=== PATIENT | male | born 1960 | race American Indian/Alaskan Native ===

== ENCOUNTER → 2024-03-25 | Outpatient (CLI) | payer OTHER ==
[2024-03-25 13:38] LABS: Urine Bacteria None Seen /hpf (None Seen)
[2024-03-25 13:59] LABS: Basophils # (auto) 0 10 ^3/uL (0-0.2); Basophils % (auto) 0.5 % (0.0-2.0); Eosinophils # (auto) 0.1 10 ^3/uL (0-0.8); Eosinophils % (auto) 2.1 % (0.0-7.0); Hematocrit 40.6 % (41.0-53.0); Hemoglobin 13.6 g/dL (13.5-17.5); Lymphocytes % (auto) 28.3 % (10.0-50.0); Mean Corpuscular Hemoglobin 27.5 pg (28.0-32.0); Mean Corpuscular Hgb Conc. 33.5 g/dL (32.0-36.0); Mean Corpuscular Volume 82.1 fL (80.0-100.0); Monocytes # (auto) 0.6 10 ^3/uL (0-1.3); Monocytes % (auto) 8.6 % (0.0-12.0); Neutrophils # (auto) 4.3 10 ^3/uL (1.6-8.6); Neutrophils % (auto) 60.5 % (37.0-80.0); Nucleated Red Blood Cells % 0.1 %; Red Blood Cells 4.94 10^6/uL (4.5-5.90); Red Cell Distribution Width 14.2 % (11.8-14.3)
[2024-03-25 14:02] LABS: Urine Blood Negative /uL (Negative); Urine Clarity Clear (Clear); Urine Color Light-Yellow (Yellow); Urine Protein, UAD Negative (Negative); Urine Specific Gravity 1.019 (1.001-1.035); Urine Urobilinogen Normal (Negative); Urine WBC 3 /hpf (0 - 3)
[2024-03-25 14:44] LABS: Alanine Aminotransferase 20 U/L (7-40); Albumin 4.4 g/dL (3.2-4.8); Alkaline Phosphatase 52 U/L (46-116); Anion Gap 6 (5-15); Aspartate Aminotransferase 17 U/L (13-40); BUN/Creatinine Ratio 9.1 (10.0-20.0); Bilirubin, Total 0.7 mg/dL (0.2-1.0); Blood Urea Nitrogen 7 mg/dL (9-23); Calcium 9.7 mg/dL (8.7-10.4); Carbon Dioxide 27 mmol/L (20-30); Chloride 105 mmol/L (98-107); Cholesterol 183 mg/dL (< 200); Glucose 109 mg/dL (74-106); HDL Cholesterol 31 mg/dL (40-59); LDL Cholesterol 134 mg/dL (< 100); Sodium 138 mmol/L (136-145); Triglycerides 160 mg/dL (< 150)
[2024-03-25 14:45] LABS: Total Protein 6.9 g/dL (5.7-8.2)
[2024-03-25 14:46] LABS: Folate (Folic Acid) 11.52 ng/mL (>5.38)
[2024-03-25 14:52] LABS: Uric Acid 6.1 mg/dL (3.7-9.2)
== END | disposition home or self-care (01) ==
LOC: LAB 13:24
PROVIDERS: ATTEND Internal Medicine
DX: I10 Essential (primary) hypertension (principal); E11.9 Type 2 diabetes mellitus without complications; E55.9 Vitamin D deficiency, unspecified; E03.9 Hypothyroidism, unspecified
CPT/HCPCS: 36415; 80053; 80061; 81001; 82306; 82607; 82746; 83036; 84443; 84550; 85025; 87086

== ENCOUNTER → 2024-06-21 | Outpatient (CLI) | payer OTHER ==
[2024-06-21 11:38] LABS: Urine Bacteria None Seen /hpf (None Seen); Urine WBC None Seen /hpf (0 - 3)
[2024-06-21 11:49] LABS: Basophils # (auto) 0 10 ^3/uL (0-0.2); Basophils % (auto) 0.3 % (0.0-2.0); Eosinophils # (auto) 0.2 10 ^3/uL (0-0.8); Eosinophils % (auto) 1.9 % (0.0-7.0); Hematocrit 41.9 % (41.0-53.0); Hemoglobin 13.8 g/dL (13.5-17.5); Lymphocytes # (auto) 1.9 10 ^3/uL (0.4-5.4); Lymphocytes % (auto) 19.5 % (10.0-50.0); Mean Corpuscular Hemoglobin 27.7 pg (28.0-32.0); Mean Corpuscular Hgb Conc. 33.1 g/dL (32.0-36.0); Mean Corpuscular Volume 83.8 fL (80.0-100.0); Monocytes # (auto) 0.8 10 ^3/uL (0-1.3); Monocytes % (auto) 8.3 % (0.0-12.0); Neutrophils # (auto) 6.9 10 ^3/uL (1.6-8.6); Platelet Count (auto) 304 10^3/uL (140-450); Red Cell Distribution Width 14.2 % (11.8-14.3); White Blood Cell 9.8 10^3/uL (4.4-10.8)
[2024-06-21 12:13] LABS: Alanine Aminotransferase 30 U/L (7-40); Alkaline Phosphatase 61 U/L (46-116); Anion Gap 9 (5-15); Aspartate Aminotransferase 27 U/L (13-40); BUN/Creatinine Ratio 12.5 (10.0-20.0); Blood Urea Nitrogen 10 mg/dL (9-23); Calcium 10.1 mg/dL (8.7-10.4); Carbon Dioxide 26 mmol/L (20-31); Chloride 106 mmol/L (98-107); Glucose 146 mg/dL (74-106); LDL Cholesterol 62 mg/dL (< 100); Potassium 4.1 mmol/L (3.5-5.1); Sodium 141 mmol/L (136-145); Triglycerides 120 mg/dL (< 150)
[2024-06-21 12:14] LABS: Albumin 4.5 g/dL (3.2-4.8); Cholesterol 111 mg/dL (< 200); HDL Cholesterol 36 mg/dL (40-59)
[2024-06-21 12:15] LABS: Bilirubin, Total 0.5 mg/dL (0.2-1.0); Total Protein 7.2 g/dL (5.7-8.2)
[2024-06-21 12:17] LABS: Folate (Folic Acid) 15.02 ng/mL (>5.38)
[2024-06-21 12:39] LABS: Urine Blood Negative /uL (Negative); Urine Clarity Clear (Clear); Urine Color Light-Yellow (Yellow); Urine Protein, UAD Negative (Negative); Urine Urobilinogen Normal (Negative)
[2024-06-21 12:47] LABS: Uric Acid 5.3 mg/dL (3.7-9.2)
== END | disposition home or self-care (01) ==
LOC: LAB 11:23
PROVIDERS: ATTEND Nurse Practitioner Family
DX: E61.2 Magnesium deficiency (principal); D51.9 Vitamin B12 deficiency anemia, unspecified; R73.09 Other abnormal glucose; R94.6 Abnormal results of thyroid function studies; E55.9 Vitamin D deficiency, unspecified; E79.0 Hyperuricemia without signs of inflammatory arthritis and tophaceous disease; R82.90 Unspecified abnormal findings in urine
CPT/HCPCS: 36415; 80053; 80061; 81001; 82306; 82607; 82746; 83036; 84443; 84550; 85025; 87086

== ENCOUNTER → 2024-08-26 | Outpatient (CLI) | payer OTHER ==
[2024-08-26 13:18] LABS: Basophils # (auto) 0 10 ^3/uL (0-0.2); Basophils % (auto) 0.4 % (0.0-2.0); Eosinophils # (auto) 0.3 10 ^3/uL (0-0.8); Eosinophils % (auto) 3.1 % (0.0-7.0); Hematocrit 43.8 % (41.0-53.0); Hemoglobin 14.6 g/dL (13.5-17.5); Lymphocytes # (auto) 1.9 10 ^3/uL (0.4-5.4); Lymphocytes % (auto) 21.6 % (10.0-50.0); Mean Corpuscular Hemoglobin 27.9 pg (28.0-32.0); Mean Corpuscular Hgb Conc. 33.3 g/dL (32.0-36.0); Mean Corpuscular Volume 83.6 fL (80.0-100.0); Monocytes # (auto) 0.9 10 ^3/uL (0-1.3); Neutrophils # (auto) 5.7 10 ^3/uL (1.6-8.6); Neutrophils % (auto) 64.9 % (37.0-80.0); Platelet Count (auto) 304 10^3/uL (140-450); Red Blood Cells 5.23 10^6/uL (4.5-5.90); Red Cell Distribution Width 13.2 % (11.8-14.3); White Blood Cell 8.7 10^3/uL (4.4-10.8)
[2024-08-26 13:51] LABS: Alanine Aminotransferase 32 U/L (7-40); Albumin 4.5 g/dL (3.2-4.8); Alkaline Phosphatase 63 U/L (46-116); Anion Gap 6 (5-15); Aspartate Aminotransferase 24 U/L (13-40); BUN/Creatinine Ratio 11.1 (10.0-20.0); Bilirubin, Direct 0.1 mg/dL (<0.3); Bilirubin, Total 0.3 mg/dL (0.2-1.0); Blood Urea Nitrogen 9 mg/dL (9-23); Calcium 10.1 mg/dL (8.7-10.4); Carbon Dioxide 28 mmol/L (20-31); Chloride 104 mmol/L (98-107); Cholesterol 123 mg/dL (< 200); LDL Cholesterol 66 mg/dL (< 100); Potassium 4.3 mmol/L (3.5-5.1); Sodium 138 mmol/L (136-145); Total Protein 7.2 g/dL (5.7-8.2); Triglycerides 144 mg/dL (< 150)
[2024-08-26 13:54] LABS: Glucose 155 mg/dL (74-106); HDL Cholesterol 39 mg/dL (40-59)
== END | disposition home or self-care (01) ==
LOC: LAB 12:46
PROVIDERS: ATTEND Specialist
DX: I10 Essential (primary) hypertension (principal); R79.89 Other specified abnormal findings of blood chemistry; R68.89 Other general symptoms and signs; E03.9 Hypothyroidism, unspecified; D64.9 Anemia, unspecified; E78.5 Hyperlipidemia, unspecified; E11.9 Type 2 diabetes mellitus without complications; E83.40 Disorders of magnesium metabolism, unspecified
CPT/HCPCS: 36415; 80053; 80061; 82248; 84443; 85025

== ENCOUNTER → 2024-09-26 | Outpatient (CLI) | payer OTHER ==
[2024-09-26 15:28] LABS: Urine Bacteria None Seen /hpf (None Seen)
[2024-09-26 16:10] LABS: Urine Blood Negative /uL (Negative); Urine Clarity Clear (Clear); Urine Color Light-Yellow (Yellow); Urine Mucus FEW (None Seen); Urine Protein, UAD Negative (Negative); Urine Specific Gravity 1.018 (1.001-1.035); Urine Squamous Epithelial Cell FEW /hpf (<5); Urine Urobilinogen Normal (Negative); Urine WBC 2 /HPF (0-3)
[2024-09-26 16:21] LABS: Alanine Aminotransferase 22 U/L (7-40); Alkaline Phosphatase 59 U/L (46-116); Anion Gap 8 (5-15); BUN/Creatinine Ratio 15.7 (10.0-20.0); Blood Urea Nitrogen 14 mg/dL (9-23); Carbon Dioxide 28 mmol/L (20-31); Chloride 104 mmol/L (98-107); Cholesterol 106 mg/dL (< 200); LDL Cholesterol 62 mg/dL (< 100); Magnesium 1.7 mg/dL (1.6-2.6); Potassium 4.2 mmol/L (3.5-5.1); Sodium 140 mmol/L (136-145); Triglycerides 125 mg/dL (< 150)
[2024-09-26 16:22] LABS: Bilirubin, Total 0.4 mg/dL (0.2-1.0); Total Protein 7.5 g/dL (5.7-8.2)
[2024-09-26 16:23] LABS: Folate (Folic Acid) 10.05 ng/mL (>5.38)
[2024-09-26 16:28] LABS: Calcium 10.8 mg/dL (8.7-10.4); Glucose 133 mg/dL (74-106); HDL Cholesterol 32 mg/dL (40-59)
[2024-09-26 16:42] LABS: Aspartate Aminotransferase < 8 U/L (13-40)
[2024-09-26 16:54] LABS: Uric Acid 5.1 mg/dL (3.7-9.2)
== END | disposition home or self-care (01) ==
LOC: LAB 15:01
PROVIDERS: ATTEND Internal Medicine
DX: E78.49 Other hyperlipidemia (principal); R68.89 Other general symptoms and signs; R79.89 Other specified abnormal findings of blood chemistry; R82.998 Other abnormal findings in urine
CPT/HCPCS: 36415; 80053; 80061; 81001; 82306; 82607; 82746; 83036; 83735; 84443; 84550; 87086

== ENCOUNTER → 2024-11-26 | Outpatient (CLI) | payer OTHER ==
[2024-11-26 11:03] LABS: Basophils # (auto) 0 10 ^3/uL (0-0.2); Basophils % (auto) 0.4 % (0.0-2.0); Eosinophils # (auto) 0.2 10 ^3/uL (0-0.8); Eosinophils % (auto) 2.1 % (0.0-7.0); Hematocrit 43.1 % (41.0-53.0); Hemoglobin 14.2 g/dL (13.5-17.5); Lymphocytes # (auto) 1.8 10 ^3/uL (0.4-5.4); Lymphocytes % (auto) 23.3 % (10.0-50.0); Mean Corpuscular Hemoglobin 27.6 pg (28.0-32.0); Mean Corpuscular Volume 83.7 fL (80.0-100.0); Monocytes # (auto) 0.8 10 ^3/uL (0-1.3); Monocytes % (auto) 9.6 % (0.0-12.0); Neutrophils # (auto) 5.1 10 ^3/uL (1.6-8.6); Neutrophils % (auto) 64.6 % (37.0-80.0); Platelet Count (auto) 323 10^3/uL (140-450); Red Blood Cells 5.15 10^6/uL (4.5-5.90); Red Cell Distribution Width 13.3 % (11.8-14.3); White Blood Cell 7.9 10^3/uL (4.4-10.8)
[2024-11-26 11:33] LABS: Alanine Aminotransferase 22 U/L (7-40); Albumin 4.8 g/dL (3.2-4.8); Alkaline Phosphatase 53 U/L (46-116); Anion Gap 6 (5-15); Aspartate Aminotransferase 18 U/L (13-40); BUN/Creatinine Ratio 16.7 (10.0-20.0); Bilirubin, Total 0.3 mg/dL (0.2-1.0); Blood Urea Nitrogen 13 mg/dL (9-23); Calcium 9.8 mg/dL (8.7-10.4); Carbon Dioxide 27 mmol/L (20-31); Chloride 108 mmol/L (98-107); Glucose 171 mg/dL (74-106); Potassium 4.4 mmol/L (3.5-5.1); Sodium 141 mmol/L (136-145); Total Protein 7.5 g/dL (5.7-8.2)
[2024-11-26 13:23] LABS: LDL Cholesterol 72 mg/dL (< 100); Triglycerides 103 mg/dL (< 150)
[2024-11-26 13:25] LABS: Bilirubin, Direct 0.1 mg/dL (<0.3); Cholesterol 118 mg/dL (< 200); HDL Cholesterol 31 mg/dL (40-59)
== END | disposition home or self-care (01) ==
LOC: LAB 10:42
PROVIDERS: ATTEND Specialist
DX: I10 Essential (primary) hypertension (principal); E11.9 Type 2 diabetes mellitus without complications; E03.9 Hypothyroidism, unspecified; E78.5 Hyperlipidemia, unspecified; D64.9 Anemia, unspecified; R68.89 Other general symptoms and signs
CPT/HCPCS: 36415; 80053; 80061; 82248; 84443; 85025

== ENCOUNTER 2025-02-18 14:55 | Outpatient (CLI) | payer OTHER ==
[2025-02-18 16:07] LABS: Urine Bacteria None Seen /hpf (None Seen)
[2025-02-18 16:12] LABS: Basophils # (auto) 0.1 10 ^3/uL (0-0.2); Basophils % (auto) 0.7 % (0.0-2.0); Eosinophils # (auto) 0.3 10 ^3/uL (0-0.8); Eosinophils % (auto) 3.6 % (0.0-7.0); Hematocrit 42.7 % (41.0-53.0); Hemoglobin 14.4 g/dL (13.5-17.5); Lymphocytes # (auto) 2.4 10 ^3/uL (0.4-5.4); Lymphocytes % (auto) 28.6 % (10.0-50.0); Mean Corpuscular Hemoglobin 27.5 pg (28.0-32.0); Mean Corpuscular Hgb Conc. 33.8 g/dL (32.0-36.0); Mean Corpuscular Volume 81.4 fL (80.0-100.0); Monocytes # (auto) 0.7 10 ^3/uL (0-1.3); Monocytes % (auto) 8.2 % (0.0-12.0); Neutrophils # (auto) 4.9 10 ^3/uL (1.6-8.6); Neutrophils % (auto) 58.9 % (37.0-80.0); Nucleated Red Blood Cells % 0.1 %; Platelet Count (auto) 288 10^3/uL (140-450); Red Blood Cells 5.25 10^6/uL (4.5-5.90); Red Cell Distribution Width 13.7 % (11.8-14.3); White Blood Cell 8.3 10^3/uL (4.4-10.8)
[2025-02-18 16:19] LABS: Urine Blood Negative /uL (Negative); Urine Clarity Clear (Clear); Urine Color Yellow (Yellow); Urine Mucus FEW (None Seen); Urine Protein, UAD Negative (Negative); Urine Specific Gravity 1.026 (1.001-1.035); Urine Squamous Epithelial Cell FEW /hpf (<5); Urine Urobilinogen Normal (Negative); Urine WBC 1 /HPF (0-3)
[2025-02-18 16:37] LABS: Alanine Aminotransferase 20 U/L (7-40); Albumin 4.7 g/dL (3.2-4.8); Alkaline Phosphatase 57 U/L (46-116); Anion Gap 10 (5-15); Aspartate Aminotransferase 27 U/L (<34); BUN/Creatinine Ratio 14.9 (10.0-20.0); Blood Urea Nitrogen 11 mg/dL (9-23); Calcium 10.2 mg/dL (8.7-10.4); Carbon Dioxide 28 mmol/L (20-31); Chloride 106 mmol/L (98-107); Cholesterol 134 mg/dL (< 200); LDL Cholesterol 85 mg/dL (< 100); Potassium 4.1 mmol/L (3.5-5.1); Sodium 144 mmol/L (136-145); Total Protein 7.4 g/dL (5.7-8.2); Triglycerides 146 mg/dL (< 150)
[2025-02-18 16:38] LABS: Bilirubin, Total 0.5 mg/dL (0.2-1.0)
[2025-02-18 16:40] LABS: Folate (Folic Acid) 11.73 ng/mL (>5.38)
[2025-02-18 16:44] LABS: Glucose 117 mg/dL (74-106); HDL Cholesterol 31 mg/dL (40-59)
[2025-02-18 16:57] LABS: Uric Acid 5.2 mg/dL (3.7-9.2)
== END 2025-02-18 17:00 | disposition home or self-care (01) ==
LOC: LAB 14:55
PROVIDERS: ATTEND Specialist
DX: I10 Essential (primary) hypertension (principal); E11.9 Type 2 diabetes mellitus without complications; E78.5 Hyperlipidemia, unspecified; E79.0 Hyperuricemia without signs of inflammatory arthritis and tophaceous disease; E03.9 Hypothyroidism, unspecified; E55.9 Vitamin D deficiency, unspecified; D64.9 Anemia, unspecified; E61.2 Magnesium deficiency; D51.9 Vitamin B12 deficiency anemia, unspecified; R68.89 Other general symptoms and signs; R94.6 Abnormal results of thyroid function studies; R82.90 Unspecified abnormal findings in urine; R82.79 Other abnormal findings on microbiological examination of urine
CPT/HCPCS: 36415; 80053; 80061; 81001; 82607; 82746; 83036; 83735; 84443; 84550; 85025

== ENCOUNTER 2025-06-07 10:37 | Emergency (ER) | payer OTHER ==
[~2025-06-07] VITALS: Ht 165.1 cm; Wt 104.0 kg
--- NOTE | 2025-06-07 10:54 | ED.PDOC ---
HPI (NEURO) HPI Comments This is a 64 year-old male, with a Hx of PVCs, who presents to the ED via wheelchair with a chief complaint of SOB and chest discomfort radiating to the back as of today. Patient states that onset of symptoms began this morning while mopping the gym floor. Patient states chest palpitations, SOB, dizziness, fatigue, weakness, and chest discomfort lasted for approximately 45 minutes. Patient reports concerns for possible heart attack, as he normally does not have this type of reaction to the PVCs. Patient expresses additional concerns of acute arrhythmia including ventricular tachycardia. EKG today is unremarkable. Patient has no further complaints at this time and otherwise denies cough, hemoptysis, fever, chills, or abdominal pain. Chief Complaint: Dizziness Time Seen by MD: 10:54 Reviewed Notes: Medications, Allergies Information Source: Patient, Spouse Mode of Arrival: Wheelchair Severity: Moderate Duration: Since onset Prehospital treatment: None Onset: At rest, With light exertion, With heavy exertion Circumstances: Spontaneous Symptoms: Other (dizziness, CP L sided ) Associated Signs and Symptoms: Palpitations, Chest Pain, Other (Dizziness, Fatigue) Past Medical History PAST MEDICAL HISTORY: CO Surgical History: Denies all surgeries Family History Family History: Reviewed,noncontributory to illness, No family hx of Cancer, No family hx of DM, No family hx of Heart jose, No family hx of HTN, No family hx ofKidney jose, No family hx of Liver jose, No family hx of Lung jose, No family hx of Stroke Social History Smoker: Non-Smoker Alcohol: Denies ETOH Use Drugs: Denies Drug Use Lives In: Home Constitutional: reports: fatigue; denies: chills, diaphoresis, fever, malaise, sweats, weakness, others EENTM: denies: blurred vision, double vision, ear bleeding, ear discharge, ear drainage, ear pain, ear ringing, eye pain, eye redness, hearing loss, mouth pain, mouth swelling, nasal discharge, nose bleeding, nose congestion, nose pain, photophobia, tearing, throat pain, throat swelling, voice changes, others Respiratory: denies: cough, hemoptysis, orthopnea, SOB at rest, shortness of breath, SOB with excertion, stridor, wheezing, others Cardiovascular: reports: chest pain; denies: dizzy spells, diaphoresis, Dyspnea on exertion, edema, irregular heart beat, left arm pain, lightheadedness, palpitations, PND, syncope, others Gastrointestinal: denies: abdomen distended, abdominal pain, blood streaked bowels, constipated, diarrhea, dysphagia, difficulty swallowing, hematemesis, melena, nausea, poor appetite, poor fluid intake, rectal bleeding, rectal pain, vomiting, others Genitourinary: denies: burning, dysuria, flank pain, frequency, hematuria, incontinence, penile discharge, penile sore, pain, testicle pain, testicle swelling, urgency, others Neurological: reports: dizziness; denies: fainting, headache, left sided numbness, left sided weakness, numbness, paresthesia, pre-existing deficit, right sided numbness, right sided weakness, seizure, speech problems, tingling, tremors, weakness, others Musculoskeletal: reports: back pain; denies: gout, joint pain, joint swelling, muscle pain, muscle stiffness, neck pain, others Integumetry: denies: bruises, change in color, change in hair/nails, dryness, laceration, lesions, lumps, rash, wounds, others Allergic/Immunocompromised: denies: Difficulty Healing, Frequent Infections, Hives, Itching, others Hematologic/Lymphatic: denies: anemia, blood clots, easy bleeding, easy bruising, swollen glands, others Endocrine: denies: excessive hunger, excessive sweating, excessive thirst, excessive urination, flushing, intolerance to cold, intolerance to heat, unexplained weight gain, unexplained weight loss, others Psychiatric: denies: anxiety, bipolar disorder, depression, hopeless, panic disorder, schizophrenia, sleepless, suicidal, others All Other Systems: Reviewed and Negative Physical Exam General Appearance: No Apparent Distress, Normal, Other (tearful) HEENT: Normal ENT Inspection, Pharynx Normal, TMs Normal Neck: Full Range of Motion, Non-Tender, Normal, Normal Inspection Respiratory: Chest Non-Tender, Lungs Clear, No Accessory Muscle Use, No Respiratory Distress, Normal Breath Sounds Cardiovascular: No Edema, No JVD, No Murmur, No Gallop, Normal Peripheral Pulses, Regular Rate/Rhythm Breast Exam: Deferred Gastrointestinal: No Organomegaly, Non Tender, No Pulsatile Mass, Normal Bowel Sounds, Soft Genitalia: Deferred Pelvic: Deferred Rectal: Deferred Extremities: No calf tenderness, Normal capillary refill, Normal inspection, Normal range of motion, Non-tender, No pedal edema Musculoskeletal : Apperance: Normal Neurologic: Alert, mailroom personnel II-XII nml as Tested, No Motor Deficits, Normal Affect, Normal Mood, No Sensory Deficits Cerebellar Function: Normal Reflexes: Normal Skin: Dry, Normal Color, Warm Lymphatic: No Adenopathy EKG EKG : Comments Normal sinus rhythm rate of [address] changes Was a procedure done? Was a procedure done?: No Differential Diagnosis (SZ) Seizure: Alcohol Withdrawl, Closed Head Injury, Syncope General Weakness: Anemia, Dehydration, Electrolyte imbalance Headache: Migraine, Sinusitis X-Ray, Labs, Meds, VS Vital Signs Date Time Temp Pulse Resp B/P (MAP) Pulse Ox O2 Delivery O2 Flow Rate FiO2 06/07/25 12:22 74 16 93 Room Air* 0 21 06/07/25 12:22 97.9 74 16 140/92 (108) 93 97.9 06/07/25 10:45 70 06/07/25 10:39 98.1 79 18 157/104 98 98.1 Lab Test 06/07/25 12:08 06/07/25 10:54 06/07/25 10:50 Range/Units Troponin I High Sensitivity < 3 L < 3 L </=54 ng/L White Blood Count 8.1 4.4-10.8 10^3/uL Red Blood Count 5.12 4.5-5.90 10^6/uL Hemoglobin 14.2 13.5-17.5 g/dL Hematocrit 42.1 41.0-53.0 % Mean Corpuscular Volume 82.2 80.0-100.0 fL Mean Corpuscular Hemoglobin 27.8 L 28.0-32.0 pg Mean Corpuscular Hemoglobin Concent 33.8 32.0-36.0 g/dL Red Cell Distribution Width 14.1 11.8-14.3 % Platelet Count 295 140-450 10^3/uL Mean Platelet Volume 8.8 6.9-10.8 fL Neutrophils (%) (Auto) 66.9 37.0-80.0 % Lymphocytes (%) (Auto) 21.8 10.0-50.0 % Monocytes (%) (Auto) 9.2 0.0-12.0 % Eosinophils (%) (Auto) 1.8 0.0-7.0 % Basophils (%) (Auto) 0.3 0.0-2.0 % Neutrophils # (Auto) 5.4 1.6-8.6 10 ^3/uL Lymphocytes # (Auto) 1.8 0.4-5.4 10 ^3/uL Monocytes # (Auto) 0.7 0-1.3 10 ^3/uL Eosinophils # (Auto) 0.1 0-0.8 10 ^3/uL Basophils # (Auto) 0 0-0.2 10 ^3/uL Nucleated Red Blood Cells 0.0 % Sodium Level 141 136-145 mmol/L Potassium Level 4.3 3.5-5.1 mmol/L Chloride Level 105 98-107 mmol/L Carbon Dioxide Level 25 20-31 mmol/L Anion Gap 11 5-15 Blood Urea Nitrogen 13 9-23 mg/dL Creatinine 0.64 L 0.700-1.30 mg/dL Glomerular Filtration Rate Calc 106 >90 mL/min BUN/Creatinine Ratio 20.3 H 10.0-20.0 Serum Glucose 144 H 74-106 mg/dL Calcium Level 9.4 8.7-10.4 mg/dL Magnesium Level 2.0 1.6-2.6 mg/dL Total Bilirubin 0.5 0.2-1.0 mg/dL Aspartate Amino Transferase (AST) 22 13-40 U/L Alanine Aminotransferase (ALT) 19 7-40 U/L Alkaline Phosphatase 55 46-116 U/L Total Protein 7.5 5.7-8.2 g/dL Albumin 4.7 3.2-4.8 g/dL Lipase 51 12-53 U/L POC Glucose 149 H 70-106 mg/dl Current Medications Medications (Trade) Dose Ordered Sig/Jacobo Route Start Time Stop Time Status Last Admin Aspirin 162 mg ONCE ONCE PO 06/07/25 11:15 06/07/25 11:16 DC 06/07/25 12:[address] [address] Ph: [phone] DIAGNOSTIC IMAGING Diagnostic Imaging Report : [id number] Signed PATIENT: LISA LIMA ACCT: [id number] UNIT: [id number] : 1960 LOC: ER ROOM / BED: / AGE / SEX: 64 / M ADM STATUS: REG ER SERVICE [id number] ORDERING PHYSICIAN: JAMILA DOMÍNGUEZ MD PROCEDURE(s): CXR2 - CHEST TWO VIEWS ROUTINE REASON: Chest pain ORDER NUMBER(s): [id number], ACCESSION NUMBER(s): [id number] CLINICAL HISTORY: Chest pain TECHNIQUE: Chest 2 views of the chest were obtained. COMPARISON: XY CHEST TWO VIEWS ROUTINE on DOS: 03/28/25, XY CHEST TWO VIEWS ROUTINE on DOS: 05/21/24 FINDINGS: The heart size and pulmonary vasculature are normal. The lungs are clear. No pleural effusion is present. IMPRESSION: NO ACUTE CARDIOPULMONARY PROCESS. 64-year-old male with known history of PVCs presents here with chest discomfort and shortness of breath with radiation to the back. He states this morning after he mopped the gym floor which he does not normally do he began to have significant palpitations that came in went and associated chest discomfort and shortness of breath with it. He states it lasted 45 minutes. Patient states it was a significant event and normally he does not have this type of reaction to the PVCs. At this time I am concerned about acute arrhythmia including ventricular tachycardia. EKG today is unremarkable. At this time a CBC, BMP troponin and EKG has been ordered. Including chest x-ray. CBC BMP troponin EKG have all returned within normal limits. Chest x-ray also normal. At this time on my re-evaluation at 2:13 p.m. patient is looking much better, he he is no longer in a wheelchair and able to ambulate. I offered him admission during my 1st conversation with him and I offered admission again this time. is at bedside. I advised them that it is possible he may have had an acute arrhythmia other than PVCs. I strongly stressed by recommendation for admission however they prefer to go home. I advised him to follow up with the outpatient dietitian and the patient understand and are thankful for their care and return back to the ER has a solitary. Images Reviewed?: Images reviewed and evaluated by me Time of 1ST Reevaluation: 11:52 Reevaluation 1ST: Unchanged Time of 2ND Reevaluation: 14:13 Reevaluation 2ND: Improved Patient Education/Counseling: Diagnosis, Treatment Family Education/Counseling: Diagnosis, Treatment Departure 1 Departure Time of Disposition: 14:14 Impression: Primary Impression: Chest pain Qualified Codes: R07.9 - Chest pain, unspecified Additional Impressions: Dizziness Palpitations Disposition: HOME / SELF CARE / HOMELESS Condition: Stable Discharged With: Self, Relative, Significant Other Critical Care Note Critical Care Time?: No Stability Stability form required: No Heart Score Heart Score: Heart Score Response (Comments) Value History Moderate Suspicious 1 EKG Normal 0 Age 45-64 1 Risk Factors 1 or 2 risk factors 1 Troponin Normal limit 0 Total 3 I personally scribed for JAMILA DOMÍNGUEZ MD ([facility]) on 06/07/25 at 11:05. Electronically submitted by Melissa Farr ([facility]). I personally scribed for JAMIL[facility]Z [facility] on 06/07/25 at 11:23. Electronically submitted by Melissa Farr ([employer]). I personally scribed for JAMILA DOM[facility]NGUEZ MD ([facility] on 06/07/25 at 11:50. Electronically submitted by Melissa Farr ([facility]). I personally scribed for JAMILA DOMÍNGUEZ MD ([facility]) on 06/07/25 at 12:24. Electronically submitted by Melissa Farr ([facility]). JAMILA DOMÍNGUEZ MD Jun 07, 2025 10:54
[2025-06-07 11:37] LABS: Hematocrit 42.1 % (41.0-53.0); Hemoglobin 14.2 g/dL (13.5-17.5); Mean Corpuscular Hemoglobin 27.8 pg (28.0-32.0); Mean Corpuscular Volume 82.2 fL (80.0-100.0); Nucleated Red Blood Cells % 0.0 %
[2025-06-07 11:49] LABS: Alanine Aminotransferase 19 U/L (7-40); Albumin 4.7 g/dL (3.2-4.8); Alkaline Phosphatase 55 U/L (46-116); Anion Gap 11 (5-15); BUN/Creatinine Ratio 20.3 (10.0-20.0); Bilirubin, Total 0.5 mg/dL (0.2-1.0); Blood Urea Nitrogen 13 mg/dL (9-23); Calcium 9.4 mg/dL (8.7-10.4); Carbon Dioxide 25 mmol/L (20-31); Chloride 105 mmol/L (98-107); Glucose 144 mg/dL (74-106); Potassium 4.3 mmol/L (3.5-5.1); Sodium 141 mmol/L (136-145); Total Protein 7.5 g/dL (5.7-8.2)
--- NOTE | 2025-06-07 12:14 | DVH ---
CLINICAL HISTORY: Chest pain TECHNIQUE: Chest 2 views of the chest were obtained. COMPARISON: XY CHEST TWO VIEWS ROUTINE on DOS: 03/28/25, XY CHEST TWO VIEWS ROUTINE on DOS: 05/21/24 FINDINGS: The heart size and pulmonary vasculature are normal. The lungs are clear. No pleural effusion is pres ent. IMPRESSION: NO ACUTE CARDIOPULMONARY PROCESS.
[2025-06-07 12:22] VITALS: PULSE 74; RESP 16; O2SAT 93
[2025-06-07 14:32] VITALS: BP 118/79; PULSE 85; RESP 18; TEMP 98.4; O2SAT 94
--- NOTE | 2025-06-11 09:31 | ECG ---
[facility] Test Date: 2025-06-07 Test Time: 10:45:32 Pat Name: LISA LIMA Department: ED Room: Gender: M Digital Campaign Specialist: ROSSANA : 1960 Requested By: JAMILA DOMÍNGUEZ Order Number: [id number] Reading MD: Measurements Intervals Scroggins Rate: 70 P: 16 ID: [id number] QRS: 32 QRSD: 99 T: 57 QT: 401 QTc: 433 Interpretive Statements Sinus rhythm Please click the below link to view image of tracing.
== END 2025-06-07 14:32 | disposition home or self-care (01) ==
LOC: ER 10:39
DX: R07.89 Other chest pain (principal); R00.2 Palpitations; R42 Dizziness and giddiness; R06.02 Shortness of breath; Z86.79 Personal history of other diseases of the circulatory system
CPT/HCPCS: 36415; 71046; 80053; 82947; 82962; 83690; 83735; 84484; 85025; 93005